=== PATIENT | male | born 1960 | race Caucasian/White ===

== ENCOUNTER 2018-08-18 00:11 | Inpatient (IN) | payer OTHER, MEDICARE ==
[2018-08-18] VITALS (11 sets, daily range): BP systolic 112–158; BP diastolic 54–99
[~2018-08-18] VITALS: Ht 185.4 cm; Wt 99.8 kg
[~2018-08-18 00:11] MED LIST: ARFO15VI2 IH; DIAZ10TA PO; FLUT10SP NS; GABA-290 PO; HYDR-519 PO; MAGN400T26 PO; MELA5TAB3 PO; OXYB5TAB11 PO; TAMS0.4C31 PO; TERA2CAP4 PO; TIZA4TAB4 PO; TRAZ-212 PO; WARF-67 PO; WARF3TAB58 PO
[2018-08-18] MEDS ORDERED: IPRATROPIUM BROMIDE (0.02%) 0.5MG/2.5ML NEB HHN STA ×2 (00:28)
[2018-08-18] MEDS ORDERED: METHYLPREDNISOLONE SOD SUCC 125 MG/2 ML VIAL IV STA (00:28)
[2018-08-18] MEDS ORDERED: ALBUTEROL (0.083%) 2.5MG/3ML NEB HHN STA ×2 (00:28)
[2018-08-18] MEDS ORDERED: LEVOFLOXACIN 750MG PREMIX 150 ML IV ONE (00:30)
[2018-08-18] MEDS ORDERED: VANCOMYCIN 1 G PREMIX 200 ML IV ONE (00:30)
[2018-08-18] MEDS ORDERED: SODIUM CHLORIDE 0.9% 1000ML BAG (SEPSIS BOLUS) IV ONE (00:30)
[2018-08-18 01:31] LABS: BASOPHILS % 0.5 % (0.0-2.0); EOSINOPHILS % 1.7 % (0.0-5.0); HEMATOCRIT. 44.4 % (42.0-52.0); HEMOGLOBIN. 15.1 g/dL (14.0-18.0); LYMPHOCYTES % 33.3 % (20.0-50.0); MEAN CORPUSCULAR HEMOGLOBIN 30.4 pg (28.0-32.0); MEAN CORPUSCULAR VOLUME 89.7 fL (80.0-94.0); MEAN PLATELET VOLUME 8.4 fl (7.4-10.4); MONOCYTES % 5.8 % (2.0-8.0); NEUTROPHILS % 58.7 % (40.0-76.0); PLATELET 158 x1000/uL (130-400); RED BLOOD CELL COUNT 4.95 mill/uL (4.7-6.1); RED CELL DISTRIBUTION WIDTH 15.4 % (11.6-14.6)
[2018-08-18] MEDS ORDERED: ASPIRIN 81MG TABLET PO ONE (01:45)
[2018-08-18 01:52] LABS: CHLORIDE 100 mEq/L (98-107)
[2018-08-18 01:53] LABS: PARTIAL THROMBOPLASTIN TIME 33.4 sec (23.4-31.0); PROTHROMBIN TIME 9.8 sec (9.1-11.1)
[2018-08-18] MEDS ORDERED: POTASSIUM CHLORIDE 20MEQ TABLET SR PO ONE (02:15)
[2018-08-18 03:17] LABS: CLARITY URINE TURBID (CLEAR); COLOR URINE YELLOW (YELLOW); KETONES URINE TRACE (NEGATIVE); LEUKOCYTE ESTERASE URINE 3+ (NEGATIVE); NITRITE URINE POSITIVE (NEGATIVE); OCCULT BLOOD URINE 1+ (NEGATIVE); PH URINE 6.5 (4.5-8.0); PROTEIN URINE NEGATIVE (NEGATIVE); SPECIFIC GRAVITY URINE 1.008 (1.005-1.030); UROBILINOGEN URINE 0.2 E.U./dL (0.2-1.0)
[2018-08-18] MEDS ORDERED: IPRATROPIUM/ALBUTEROL 0.5-3(2.5)MG/3ML NEB HHN PRN (05:45)
[2018-08-18] MEDS ORDERED: ZOLPIDEM TARTRATE 5MG TABLET PO PRN (05:45)
[2018-08-18] MEDS: HYDROCODONE/ACETAMINOPHEN 10/325MG TABLET PO PRN ×2 (06:08→16:30)
[2018-08-18] MEDS: IPRATROPIUM/ALBUTEROL 0.5-3(2.5)MG/3ML NEB HHN SCH ×3 (07:58→20:21)
[2018-08-18] MEDS ORDERED: APIX5TAB MT (07:58)
[2018-08-18] MEDS ORDERED: GUAIFENESIN 200MG/10ML SUGAR FREE UDC PO PRN (09:30)
[2018-08-18] MEDS ORDERED: ACETAMINOPHEN 650MG/20.3ML UDC GT PRN (09:30)
[2018-08-18] MEDS ORDERED: CLONIDINE 0.1MG TABLET PO PRN (09:30)
[2018-08-18] MEDS ORDERED: ACETAMINOPHEN 650MG SUPP PR PRN (09:30)
[2018-08-18] MEDS ORDERED: DOCUSATE SODIUM 100MG CAPSULE PO PRN (09:30)
[2018-08-18] MEDS ORDERED: DIPHENHYDRAMINE 50MG/ML VIAL IV PRN (09:30)
[2018-08-18] MEDS ORDERED: IPRATROPIUM/ALBUTEROL 0.5-3(2.5)MG/3ML NEB INH PRN (09:30)
[2018-08-18] MEDS ORDERED: MAGNESIUM/ALUMINUM HYDROXIDE/SIMETHICONE 30ML UDC PO PRN (09:30)
[2018-08-18] MEDS ORDERED: NA PHOS,M-B/NA PHOS,DI-BA ENEMA 118ML PR PRN (09:30)
[2018-08-18] MEDS: GUAIFENESIN 600MG ER TABLET PO SCH ×2 (09:57→20:32)
[2018-08-18] MEDS ORDERED: INFLUENZA VIRUS VACCINE(AFLURIA) 0.5ML SYR IM ONE (10:00)
[2018-08-18] MEDS ORDERED: IPRATROPIUM/ALBUTEROL 0.5-3(2.5)MG/3ML NEB INH SCH (12:00)
[2018-08-18 12:19] LABS: BASOPHILS % 0.1 % (0.0-2.0); HEMATOCRIT. 41.6 % (42.0-52.0); HEMOGLOBIN. 14.1 g/dL (14.0-18.0); MEAN CORPUSCULAR HEMOGLOBIN 30.4 pg (28.0-32.0); MEAN CORPUSCULAR VOLUME 89.9 fL (80.0-94.0); MEAN PLATELET VOLUME 8.2 fl (7.4-10.4); MONOCYTES % 1.5 % (2.0-8.0); NEUTROPHILS % 86.4 % (40.0-76.0); PLATELET 143 x1000/uL (130-400); RED BLOOD CELL COUNT 4.63 mill/uL (4.7-6.1)
[2018-08-18 12:40] LABS: CHLORIDE 108 mEq/L (98-107)
[2018-08-18] MEDS: SODIUM CHLORIDE 0.9% INJ 3ML FLUSH IVF SCH ×2 (14:00→22:00)
[2018-08-18 17:50] LABS: HEPATITIS B SURFACE ANTIGEN NEGATIVE
[2018-08-18 18:20] LABS: HEPATITIS A AB IGM NEGATIVE (NEGATIVE)
[2018-08-18] MEDS: AZITHROMYCIN 500 MG in DEXT 5% WATER 250 ML IV SCH (19:58)
[2018-08-18] MEDS ORDERED: LEVOFLOXACIN 500MG PREMIX 100 ML IV SCH (23:00)
[2018-08-19] VITALS (11 sets, daily range): BP systolic 137–181; BP diastolic 68–111
[2018-08-19] MEDS: IPRATROPIUM/ALBUTEROL 0.5-3(2.5)MG/3ML NEB HHN SCH ×3 (01:05→14:29)
[2018-08-19] MEDS: SODIUM CHLORIDE 0.9% INJ 3ML FLUSH IVF SCH ×2 (06:00→13:09)
[2018-08-19 07:03] LABS: BASOPHILS % 0.5 % (0.0-2.0); EOSINOPHILS % 0.9 % (0.0-5.0); HEMATOCRIT. 40.8 % (42.0-52.0); HEMOGLOBIN. 13.7 g/dL (14.0-18.0); LYMPHOCYTES % 36.8 % (20.0-50.0); MEAN CORPUSCULAR HEMOGLOBIN 29.9 pg (28.0-32.0); MEAN CORPUSCULAR VOLUME 89.3 fL (80.0-94.0); MEAN PLATELET VOLUME 8.2 fl (7.4-10.4); MONOCYTES % 9.1 % (2.0-8.0); NEUTROPHILS % 52.7 % (40.0-76.0); PLATELET 152 x1000/uL (130-400); RED BLOOD CELL COUNT 4.57 mill/uL (4.7-6.1); RED CELL DISTRIBUTION WIDTH 15.2 % (11.6-14.6)
[2018-08-19 09:22] LABS: CHLORIDE 109 mEq/L (98-107)
[2018-08-19 09:39] LABS: HDL CHOLESTEROL 65 mg/dL (40-59)
[2018-08-19 09:40] LABS: LDL CHOLESTEROL 65 mg/dL (5-100)
[2018-08-19] MEDS: GUAIFENESIN 600MG ER TABLET PO SCH (09:58)
[2018-08-19] MEDS ORDERED: LEVO500T2 MT (11:00)
[2018-08-19] MEDS: HYDROCODONE/ACETAMINOPHEN 10/325MG TABLET PO PRN (13:51)
[2018-08-19] MEDS: AZITHROMYCIN 500 MG in DEXT 5% WATER 250 ML IV SCH (16:48)
[2018-08-20 13:06] LABS: HIV SCREEN 4G Non Reactive (Non Reactive)
[2018-08-20] MEDS ORDERED: AZITHROMYCIN 500 MG TABLET PO SCH (21:00)
[2018-08-20] MEDS ORDERED: LEVOFLOXACIN 250MG TABLET PO SCH (21:00)
== END 2018-08-19 18:05 | disposition home or self-care (01) | DRG 871 ==
LOC: ER 00:11 → 5EST 02:16
PROVIDERS: ADMIT Family Medicine; ATTEND Family Medicine
DX: A41.9 Sepsis, unspecified organism (principal); G82.50 Quadriplegia, unspecified; J96.00 Acute respiratory failure, unspecified whether with hypoxia or hypercapnia; J18.1 Lobar pneumonia, unspecified organism; E44.1 Mild protein-calorie malnutrition; N39.0 Urinary tract infection, site not specified; I50.42 Chronic combined systolic (congestive) and diastolic (congestive) heart failure; E87.6 Hypokalemia; I49.5 Sick sinus syndrome; I95.9 Hypotension, unspecified; R94.5 Abnormal results of liver function studies; Z88.8 Allergy status to other drugs, medicaments and biological substances; Z83.3 Family history of diabetes mellitus; Z86.718 Personal history of other venous thrombosis and embolism; Z87.01 Personal history of pneumonia (recurrent); Z93.0 Tracheostomy status; Z95.0 Presence of cardiac pacemaker; Z74.01 Bed confinement status; Z68.29 Body mass index [BMI] 29.0-29.9, adult; Z87.81 Personal history of (healed) traumatic fracture; Z79.899 Other long term (current) drug therapy; Z79.01 Long term (current) use of anticoagulants
CPT/HCPCS: 36415; 71045; 80061; 83605; 83880; 84145; 84484; 86705; 86709; 86803; 87077; 87186; 87340; 87389; 87804; 90686; 93005; 94640; 96365; 96366; 99291; C1893; J0456; J1956; J2930; J3370; J7030; J7050; J7060; J7611; J7620; A4315

== ENCOUNTER 2019-04-02 02:51 | Emergency (ER) | payer OTHER, MEDICARE ==
[~2019-04-02] VITALS: Ht 188 cm; Wt 98.0 kg
[~2019-04-02 02:51] MED LIST changes: +APIX5TAB MT; +LEVO500T2 MT; -TERA2CAP4 PO; -TRAZ-212 PO; +TRAZ-251 PO; -WARF-67 PO; -WARF3TAB58 PO
[2019-04-02 05:32] LABS: BASOPHILS % 0.4 % (0.0-2.0); EOSINOPHILS % 0.1 % (0.0-5.0); HEMATOCRIT. 44.2 % (42.0-52.0); HEMOGLOBIN. 14.9 g/dL (14.0-18.0); LYMPHOCYTES % 11.8 % (20.0-50.0); MEAN CORPUSCULAR HEMOGLOBIN 31.1 pg (28.0-32.0); MEAN CORPUSCULAR VOLUME 92.2 fL (80.0-94.0); MEAN PLATELET VOLUME 8.6 fl (7.4-10.4); MONOCYTES % 3.3 % (2.0-8.0); NEUTROPHILS % 84.4 % (40.0-76.0); PLATELET 170 x1000/uL (130-400); RED BLOOD CELL COUNT 4.79 mill/uL (4.7-6.1); RED CELL DISTRIBUTION WIDTH 14.7 % (11.6-14.6)
[2019-04-02 05:39] LABS: CHLORIDE 102 mEq/L (98-107)
[2019-04-02 05:44] LABS: PROTHROMBIN TIME 10.5 sec (9.6-11.0)
[2019-04-02] MEDS ORDERED: MORPHINE SULFATE 4 MG/ML CPJ (NOT FOR IM USE) IV STA (06:39)
[2019-04-02] MEDS ORDERED: ONDANSETRON HCL 4MG/2ML INJ IV STA (06:39)
[2019-04-02] MEDS ORDERED: SODIUM CHLORIDE 0.9% 1,000 ML IV ONE (06:39)
[2019-04-02] MEDS ORDERED: LEVOFLOXACIN 750MG PREMIX 150 ML IV ONE (08:00)
[2019-04-02 08:48] LABS: CLARITY URINE CLOUDY (CLEAR); COLOR URINE YELLOW (YELLOW); KETONES URINE 4+ (NEGATIVE); LEUKOCYTE ESTERASE URINE 3+ (NEGATIVE); NITRITE URINE POSITIVE (NEGATIVE); OCCULT BLOOD URINE TRACE (NEGATIVE); PH URINE 5.5 (4.5-8.0); PROTEIN URINE NEGATIVE (NEGATIVE); SPECIFIC GRAVITY URINE 1.019 (1.005-1.030); UROBILINOGEN URINE 0.2 E.U./dL (0.2-1.0)
[2019-04-02 09:24] LABS: *AMPHETAMINES SCREEN URINE NEGATIVE (NEGATIVE); *BARBITURATES SCREEN URINE NEGATIVE (NEGATIVE)
[2019-04-02 09:25] LABS: *BENZODIAZEPINES SCREEN URINE PRESUMTIVE POSITIVE (NEGATIVE); *COCAINE SCREEN URINE NEGATIVE (NEGATIVE); CANNABINOID URINE SCREEN PRESUMTIVE POSITIVE (NEGATIVE); METHADONE URINE SCREEN NEGATIVE (NEGATIVE); OPIATES URINE SCREEN PRESUMTIVE POSITIVE (NEGATIVE)
[2019-04-02 09:26] LABS: PHENCYCLIDINE URINE SCREEN NEGATIVE (NEGATIVE)
[2019-04-02 10:00] VITALS: BP 95/62
[2019-04-02] MEDS ORDERED: LEVOFLOXACIN 250MG TABLET PO ONE (10:45)
== END 2019-04-02 12:49 | disposition home or self-care (01) ==
LOC: ER 02:51
DX: N30.90 Cystitis, unspecified without hematuria (principal); R11.2 Nausea with vomiting, unspecified; R05 Cough; Z87.828 Personal history of other (healed) physical injury and trauma; Z95.0 Presence of cardiac pacemaker; I50.9 Heart failure, unspecified; Z88.0 Allergy status to penicillin
CPT/HCPCS: 36415; 51702; 71045; 74176; 80053; 80305; 81003; 83690; 83880; 84484; 85025; 85610; 87077; 87086; 87186; 93005; 99284; J7030

== ENCOUNTER 2020-02-19 17:47 | Emergency (ER) | payer OTHER, MEDICARE ==
[~2020-02-19] VITALS: Ht 188 cm; Wt 102.0 kg
[~2020-02-19 17:47] MED LIST changes: -OXYB5TAB11 PO; +OXYB5TAB16 PO; -TIZA4TAB4 PO; +TIZA4TAB5 PO
[2020-02-19] MEDS ORDERED: MORPHINE SULFATE 10 MG/ML CPJ IM ONE (19:00)
[2020-02-19 20:42] LABS: CHLORIDE 107 mEq/L (98-107)
[2020-02-19 20:45] LABS: BASOPHILS % 0.9 % (0.0-2.0); EOSINOPHILS % 1.1 % (0.0-5.0); HEMATOCRIT. 40.2 % (42.0-52.0); LYMPHOCYTES % 21.5 % (20.0-50.0); MEAN CORPUSCULAR HEMOGLOBIN 32.1 pg (28.0-32.0); MEAN CORPUSCULAR VOLUME 92.3 fL (80.0-94.0); MEAN PLATELET VOLUME 7.9 fl (7.4-10.4); NEUTROPHILS % 70.5 % (40.0-76.0); PLATELET 165 x1000/uL (130-400); RED BLOOD CELL COUNT 4.36 mill/uL (4.7-6.1); RED CELL DISTRIBUTION WIDTH 15.5 % (11.6-14.6)
[2020-02-19] MEDS ORDERED: AMLODIPINE 5MG TABLET PO ONE (21:15)
[2020-02-19 22:18] VITALS: BP 149/98
[2020-02-19] MEDS ORDERED: ONDANSETRON 4MG ODT PO ONE (22:45)
== END 2020-02-19 23:54 | disposition home or self-care (01) ==
LOC: ER 17:47
DX: S40.011A Contusion of right shoulder, initial encounter (principal); S70.01XA Contusion of right hip, initial encounter; W05.0XXA Fall from non-moving wheelchair, initial encounter; Y93.89 Activity, other specified; Y92.89 Other specified places as the place of occurrence of the external cause; G82.20 Paraplegia, unspecified; Z99.3 Dependence on wheelchair
CPT/HCPCS: 36415; 73030; 73502; 80053; 85025; 96372; 99285; J2270; Q0162

== ENCOUNTER 2020-12-17 14:19 | Inpatient (IN) | payer MEDICARE, OTHER ==
[~2020-12-17] VITALS: Ht 188 cm; Wt 106.6 kg
[2020-12-17] MEDS ORDERED: SODIUM CHLORIDE 0.9% 1000ML BAG (SEPSIS BOLUS) IV ONE (15:00)
[2020-12-17] MEDS ORDERED: VANCOMYCIN 1 G PREMIX 200 ML IV ONE (15:00)
[2020-12-17] MEDS ORDERED: MEROPENEM 1,000 MG in SODIUM CHLORIDE 0.9% 100 ML IV ONE (15:00)
[2020-12-17 15:27] LABS: BASOPHILS % 1.4 % (0.0-2.0); EOSINOPHILS % 3.1 % (0.0-5.0); HEMOGLOBIN. 12.7 g/dL (14.0-18.0); LYMPHOCYTES % 29.3 % (20.0-50.0); MEAN CORPUSCULAR HEMOGLOBIN 28.9 pg (28.0-32.0); MEAN PLATELET VOLUME 7.8 fl (7.4-10.4); MONOCYTES % 10.2 % (2.0-8.0); PLATELET 236 x1000/uL (130-400); RED BLOOD CELL COUNT 4.38 mill/uL (4.7-6.1); RED CELL DISTRIBUTION WIDTH 17.5 % (11.6-14.6)
[2020-12-17 15:32] LABS: CHLORIDE 104 mEq/L (98-107)
[2020-12-17 15:37] LABS: PROTHROMBIN TIME 10.9 sec (9.6-11.0)
[2020-12-17] MEDS ORDERED: TRAMADOL 50MG TABLET PO PRN (18:15)
[2020-12-17] MEDS ORDERED: GUAIFENESIN 200MG/10ML SUGAR FREE UDC PO PRN (18:15)
[2020-12-17] MEDS ORDERED: IPRATROPIUM/ALBUTEROL 0.5-3(2.5)MG/3ML NEB NEB PRN (18:15)
[2020-12-17] MEDS ORDERED: MORPHINE SULFATE 2 MG/ML CPJ (NOT FOR IM USE) IV PRN (18:15)
[2020-12-17] MEDS ORDERED: DOCUSATE SODIUM 100MG CAPSULE PO PRN (18:15)
[2020-12-17] MEDS ORDERED: MAGNESIUM/ALUMINUM HYDROXIDE/SIMETHICONE 30ML UDC PO PRN (18:15)
[2020-12-17] MEDS ORDERED: ONDANSETRON HCL 4MG/2ML INJ IV PRN (18:15)
[2020-12-17] MEDS ORDERED: NITROGLYCERIN 0.4MG TABLET SL SL PRN (18:15)
[2020-12-17] MEDS ORDERED: ACETAMINOPHEN 325MG TABLET PO PRN ×2 (18:15)
[2020-12-17 19:45] LABS: T4 FREE 1.11 ng/dL (0.76-1.46)
[2020-12-17 20:08] LABS: CLARITY URINE CLEAR (CLEAR); COLOR URINE YELLOW (YELLOW); KETONES URINE NEGATIVE (NEGATIVE); LEUKOCYTE ESTERASE URINE TRACE (NEGATIVE); NITRITE URINE NEGATIVE (NEGATIVE); OCCULT BLOOD URINE NEGATIVE (NEGATIVE); PH URINE 6.5 (4.5-8.0); PROTEIN URINE NEGATIVE (NEGATIVE); SPECIFIC GRAVITY URINE 1.012 (1.005-1.030); UROBILINOGEN URINE 0.2 E.U./dL (0.2-1.0)
[2020-12-17] MEDS: APIXABAN 5 MG TABLET PO SCH (20:27)
[2020-12-17 22:53] VITALS: BP 140/92
[2020-12-17 23:00] VITALS: BP 123/73
[2020-12-18] VITALS (12 sets, daily range): BP systolic 98–149; BP diastolic 56–97
[2020-12-18] MEDS ORDERED: VANCOMYCIN 1 G PREMIX 200 ML IV SCH
[2020-12-18 00:03] LABS: CREATINE KINASE 40 IU/L (39-308)
[2020-12-18 00:04] LABS: CREATINE KINASE MB FRACTION 1.9 ng/mL (0.5-3.6)
[2020-12-18] MEDS ORDERED: MEROPENEM 1,000 MG in SODIUM CHLORIDE 0.9% 100 ML IV SCH (02:00)
[2020-12-18 06:42] LABS: CHLORIDE 106 mEq/L (98-107)
[2020-12-18 06:48] LABS: BASOPHILS % 1.1 % (0.0-2.0); EOSINOPHILS % 4.2 % (0.0-5.0); HEMATOCRIT. 39.2 % (42.0-52.0); HEMOGLOBIN. 12.8 g/dL (14.0-18.0); LYMPHOCYTES % 35.8 % (20.0-50.0); MEAN CORPUSCULAR HEMOGLOBIN 28.7 pg (28.0-32.0); MEAN CORPUSCULAR VOLUME 88.2 fL (80.0-94.0); MEAN PLATELET VOLUME 7.5 fl (7.4-10.4); MONOCYTES % 8.7 % (2.0-8.0); NEUTROPHILS % 50.2 % (40.0-76.0); PLATELET 230 x1000/uL (130-400); RED BLOOD CELL COUNT 4.45 mill/uL (4.7-6.1); RED CELL DISTRIBUTION WIDTH 17.9 % (11.6-14.6)
[2020-12-18 06:57] LABS: PHOSPHORUS 3.5 mg/dL (2.5-4.9)
[2020-12-18 06:58] LABS: CREATINE KINASE 36 IU/L (39-308)
[2020-12-18 07:02] LABS: CREATINE KINASE MB FRACTION 2.2 ng/mL (0.5-3.6)
[2020-12-18] MEDS: APIXABAN 5 MG TABLET PO SCH ×2 (08:47→17:33)
[2020-12-18] MEDS: CHOLECALCIFEROL (D3) 1000 UNIT TABLET PO SCH (08:49)
[2020-12-18] MEDS: ASCORBIC ACID 500 MG TABLET PO SCH ×3 (08:49→21:08)
[2020-12-18] MEDS: FAMOTIDINE 20MG TABLET PO SCH ×3 (08:49→21:08)
[2020-12-18] MEDS: ZINC SULFATE 220 MG ( 50 ) CAPSULE PO SCH (08:49)
[2020-12-18] MEDS: VANCOMYCIN 1 G PREMIX 200 ML IV SCH ×2 (10:12→21:07)
[2020-12-18] MEDS: MEROPENEM 1000MG in NORMAL SALINE 100ML IV SCH ×2 (12:36→21:07)
[2020-12-18] MEDS: BACLOFEN 10MG TABLET PO SCH ×2 (12:36→21:08)
[2020-12-18] MEDS: KETOROLAC 15MG/ML VIAL IV PRN ×3 (12:38→18:43)
[2020-12-18] MEDS: ZOLPIDEM TARTRATE 5MG TABLET PO PRN (21:08)
[2020-12-19] VITALS (14 sets, daily range): BP systolic 95–166; BP diastolic 51–100
[2020-12-19] MEDS: VANCOMYCIN 1 G PREMIX 200 ML IV SCH (02:17)
[2020-12-19] MEDS: MEROPENEM 1000MG in NORMAL SALINE 100ML IV SCH ×3 (02:17→19:55)
[2020-12-19] MEDS: BACLOFEN 10MG TABLET PO SCH ×3 (05:16→22:05)
[2020-12-19 06:25] LABS: CHLORIDE 109 mEq/L (98-107)
[2020-12-19] MEDS: FAMOTIDINE 20MG TABLET PO SCH ×2 (08:19→20:04)
[2020-12-19] MEDS: ZINC SULFATE 220 MG ( 50 ) CAPSULE PO SCH (08:19)
[2020-12-19] MEDS: APIXABAN 5 MG TABLET PO SCH ×2 (08:19→17:22)
[2020-12-19] MEDS: CHOLECALCIFEROL (D3) 1000 UNIT TABLET PO SCH (08:19)
[2020-12-19] MEDS: ASCORBIC ACID 500 MG TABLET PO SCH ×2 (08:19→20:04)
[2020-12-20] VITALS (11 sets, daily range): BP systolic 116–162; BP diastolic 36–97
[2020-12-20] MEDS: MEROPENEM 1000MG in NORMAL SALINE 100ML IV SCH ×2 (03:16→11:23)
[2020-12-20 06:17] LABS: CHLORIDE 107 mEq/L (98-107)
[2020-12-20] MEDS: BACLOFEN 10MG TABLET PO SCH ×3 (06:39→21:23)
[2020-12-20] MEDS: CHOLECALCIFEROL (D3) 1000 UNIT TABLET PO SCH (08:42)
[2020-12-20] MEDS: APIXABAN 5 MG TABLET PO SCH ×2 (08:42→17:56)
[2020-12-20] MEDS: FAMOTIDINE 20MG TABLET PO SCH ×2 (08:42→21:23)
[2020-12-20] MEDS: ASCORBIC ACID 500 MG TABLET PO SCH ×2 (08:42→21:23)
[2020-12-20] MEDS: ZINC SULFATE 220 MG ( 50 ) CAPSULE PO SCH (08:42)
[2020-12-20] MEDS ORDERED: CEFTRIAXONE 1 G PREMIX 50 ML IV SCH (14:15)
[2020-12-20] MEDS: METRONIDAZOLE 500MG TABLET PO SCH (15:16)
[2020-12-20] MEDS: CEFTRIAXONE 1,000 MG in DEXTROSE 5% WATER 50 ML IV SCH (17:56)
[2020-12-20] MEDS: VANCOMYCIN 1 G PREMIX 200 ML IV SCH (18:03)
[2020-12-20] MEDS: ZOLPIDEM TARTRATE 5MG TABLET PO PRN (21:23)
[2020-12-20] MEDS: CLONIDINE 0.1MG TABLET PO PRN (21:24)
[2020-12-21] VITALS: BP 106/67
[2020-12-21] MEDS: METRONIDAZOLE 500MG TABLET PO SCH ×3 (00:12→21:19)
[2020-12-21 04:00] VITALS: BP 127/74
[2020-12-21] MEDS: BACLOFEN 10MG TABLET PO SCH ×3 (05:42→21:19)
[2020-12-21 08:00] VITALS: BP 162/82
[2020-12-21] MEDS: CHOLECALCIFEROL (D3) 1000 UNIT TABLET PO SCH (09:07)
[2020-12-21] MEDS: FAMOTIDINE 20MG TABLET PO SCH ×2 (09:07→21:19)
[2020-12-21] MEDS: APIXABAN 5 MG TABLET PO SCH ×2 (09:08→17:26)
[2020-12-21] MEDS: CLONIDINE 0.1MG TABLET PO PRN (09:08)
[2020-12-21] MEDS: ASCORBIC ACID 500 MG TABLET PO SCH ×2 (09:08→21:19)
[2020-12-21] MEDS: ZINC SULFATE 220 MG ( 50 ) CAPSULE PO SCH (09:08)
[2020-12-21] MEDS: VANCOMYCIN 1 G PREMIX 200 ML IV SCH (11:35)
[2020-12-21 12:00] VITALS: BP 103/73
[2020-12-21] MEDS: CEFTRIAXONE 1,000 MG in DEXTROSE 5% WATER 50 ML IV SCH (15:14)
[2020-12-21 16:00] VITALS: BP 119/72
[2020-12-21 20:00] VITALS: BP 112/86
[2020-12-22] VITALS: BP 151/95
[2020-12-22 04:00] VITALS: BP 111/63
[2020-12-22] MEDS: VANCOMYCIN 1 G PREMIX 200 ML IV SCH ×2 (05:36→22:06)
[2020-12-22] MEDS: BACLOFEN 10MG TABLET PO SCH ×3 (05:36→22:05)
[2020-12-22 06:04] LABS: CHLORIDE 105 mEq/L (98-107)
[2020-12-22 06:08] LABS: C REACTIVE PROTEIN QUANT 5.1 mg/L (0.0-3.0)
[2020-12-22 06:19] LABS: BASOPHILS % 0.7 % (0.0-2.0); EOSINOPHILS % 2.1 % (0.0-5.0); HEMATOCRIT. 40.5 % (42.0-52.0); HEMOGLOBIN. 13.5 g/dL (14.0-18.0); LYMPHOCYTES % 33.2 % (20.0-50.0); MEAN CORPUSCULAR HEMOGLOBIN 29.3 pg (28.0-32.0); MEAN CORPUSCULAR VOLUME 87.7 fL (80.0-94.0); MEAN PLATELET VOLUME 8.2 fl (7.4-10.4); MONOCYTES % 7.6 % (2.0-8.0); NEUTROPHILS % 56.4 % (40.0-76.0); PLATELET 232 x1000/uL (130-400); RED BLOOD CELL COUNT 4.61 mill/uL (4.7-6.1); RED CELL DISTRIBUTION WIDTH 17.3 % (11.6-14.6)
[2020-12-22 08:00] VITALS: BP 126/72
[2020-12-22] MEDS: NYSTATIN POWDER 15GM TOP SCH ×2 (09:00→22:06)
[2020-12-22] MEDS: CHOLECALCIFEROL (D3) 1000 UNIT TABLET PO SCH (09:57)
[2020-12-22] MEDS: METRONIDAZOLE 500MG TABLET PO SCH ×2 (09:58→22:08)
[2020-12-22] MEDS: FAMOTIDINE 20MG TABLET PO SCH ×2 (09:58→22:05)
[2020-12-22] MEDS: ASCORBIC ACID 500 MG TABLET PO SCH ×2 (09:58→22:06)
[2020-12-22] MEDS: ZINC SULFATE 220 MG ( 50 ) CAPSULE PO SCH (09:58)
[2020-12-22] MEDS: APIXABAN 5 MG TABLET PO SCH ×2 (09:58→17:26)
[2020-12-22 12:00] VITALS: BP 148/90
[2020-12-22] MEDS: CEFTRIAXONE 1,000 MG in DEXTROSE 5% WATER 50 ML IV SCH (14:29)
[2020-12-22 16:00] VITALS: BP 160/94
[2020-12-22] MEDS: CLONIDINE 0.1MG TABLET PO PRN (17:26)
[2020-12-22 20:00] VITALS: BP 99/67
[2020-12-23] VITALS: BP 112/70
[2020-12-23 04:00] VITALS: BP 120/83
[2020-12-23] MEDS: BACLOFEN 10MG TABLET PO SCH ×3 (05:44→20:57)
[2020-12-23 08:00] VITALS: BP 129/85
[2020-12-23] MEDS: ASCORBIC ACID 500 MG TABLET PO SCH ×2 (08:57→20:57)
[2020-12-23] MEDS: FAMOTIDINE 20MG TABLET PO SCH ×2 (08:57→20:57)
[2020-12-23] MEDS: ZINC SULFATE 220 MG ( 50 ) CAPSULE PO SCH (08:57)
[2020-12-23] MEDS: METRONIDAZOLE 500MG TABLET PO SCH ×2 (08:57→20:57)
[2020-12-23] MEDS: CHOLECALCIFEROL (D3) 1000 UNIT TABLET PO SCH (08:57)
[2020-12-23] MEDS: APIXABAN 5 MG TABLET PO SCH ×2 (08:57→17:44)
[2020-12-23] MEDS: NYSTATIN POWDER 15GM TOP SCH ×2 (08:58→21:04)
[2020-12-23 12:00] VITALS: BP 95/68
[2020-12-23] MEDS: CEFTRIAXONE 1,000 MG in DEXTROSE 5% WATER 50 ML IV SCH (14:39)
[2020-12-23 16:00] VITALS: BP 119/59
[2020-12-23] MEDS: VANCOMYCIN 1 G PREMIX 200 ML IV SCH (17:44)
[2020-12-23 20:00] VITALS: BP 94/54
[2020-12-24] VITALS: BP 157/87
[2020-12-24 04:00] VITALS: BP 108/66
[2020-12-24] MEDS: BACLOFEN 10MG TABLET PO SCH ×3 (06:37→21:33)
[2020-12-24 08:00] VITALS: BP 128/46
[2020-12-24] MEDS: CHOLECALCIFEROL (D3) 1000 UNIT TABLET PO SCH (08:47)
[2020-12-24] MEDS: FAMOTIDINE 20MG TABLET PO SCH ×2 (08:47→20:34)
[2020-12-24] MEDS: METRONIDAZOLE 500MG TABLET PO SCH ×2 (08:47→21:33)
[2020-12-24] MEDS: ASCORBIC ACID 500 MG TABLET PO SCH ×2 (08:48→20:34)
[2020-12-24] MEDS: APIXABAN 5 MG TABLET PO SCH ×2 (08:48→17:17)
[2020-12-24] MEDS: ZINC SULFATE 220 MG ( 50 ) CAPSULE PO SCH (08:48)
[2020-12-24 12:00] VITALS: BP 116/69
[2020-12-24] MEDS: VANCOMYCIN 1 G PREMIX 200 ML IV SCH (12:07)
[2020-12-24] MEDS: NYSTATIN POWDER 15GM TOP SCH ×2 (14:18→20:35)
[2020-12-24] MEDS: CEFTRIAXONE 1,000 MG in DEXTROSE 5% WATER 50 ML IV SCH (14:53)
[2020-12-24 16:00] VITALS: BP 114/80
[2020-12-24 20:00] VITALS: BP 166/90
[2020-12-24] MEDS: CLONIDINE 0.1MG TABLET PO PRN (20:34)
[2020-12-25] VITALS (7 sets, daily range): BP systolic 91–140; BP diastolic 57–90
[2020-12-25] MEDS: VANCOMYCIN 1 G PREMIX 200 ML IV SCH (05:38)
[2020-12-25] MEDS: BACLOFEN 10MG TABLET PO SCH ×2 (05:38→14:06)
[2020-12-25] MEDS: ASCORBIC ACID 500 MG TABLET PO SCH (09:47)
[2020-12-25] MEDS: ZINC SULFATE 220 MG ( 50 ) CAPSULE PO SCH (09:47)
[2020-12-25] MEDS: FAMOTIDINE 20MG TABLET PO SCH (09:47)
[2020-12-25] MEDS: METRONIDAZOLE 500MG TABLET PO SCH (09:47)
[2020-12-25] MEDS: APIXABAN 5 MG TABLET PO SCH ×2 (09:47→17:34)
[2020-12-25] MEDS: CHOLECALCIFEROL (D3) 1000 UNIT TABLET PO SCH (09:47)
[2020-12-25] MEDS: NYSTATIN POWDER 15GM TOP SCH (09:47)
[2020-12-25 12:16] LABS: CHLORIDE 103 mEq/L (98-107)
[2020-12-25] MEDS: CEFTRIAXONE 1,000 MG in DEXTROSE 5% WATER 50 ML IV SCH (15:00)
[2020-12-25] MEDS ORDERED: DOCU-138 PO (15:57)
[2020-12-25] MEDS ORDERED: VANCOMYCIN 1250MG in DEXTROSE 5% WATER 250ML IV SCH (20:00)
== END 2020-12-25 19:18 | DRG 871 ==
LOC: ER 15:11 → EDBEDREQTM 18:00 → EDBEDREQ 18:00 → EDBEDREQSVC 18:00 → SUPCPDRO 18:02 → 3WST 18:05 → EDBEDREQTM 18:09 → EDBEDREQSVC 18:09 → ENRESERV 20:16 → 3WST 21:48 → 5WST 12-20 15:40
PROVIDERS: ADMIT Internal Medicine; ATTEND Internal Medicine
DX: A41.9 Sepsis, unspecified organism (principal); G82.52 Quadriplegia, C1-C4 incomplete; S72.401A Unspecified fracture of lower end of right femur, initial encounter for closed fracture; E87.1 Hypo-osmolality and hyponatremia; L03.115 Cellulitis of right lower limb; M86.8X6 Other osteomyelitis, lower leg; D63.8 Anemia in other chronic diseases classified elsewhere; I11.0 Hypertensive heart disease with heart failure; I50.9 Heart failure, unspecified; K59.00 Constipation, unspecified; I73.9 Peripheral vascular disease, unspecified; X58.XXXA Exposure to other specified factors, initial encounter; Z74.01 Bed confinement status; Z79.01 Long term (current) use of anticoagulants; Z99.3 Dependence on wheelchair; Z79.899 Other long term (current) drug therapy; Z79.1 Long term (current) use of non-steroidal anti-inflammatories (NSAID); Z88.8 Allergy status to other drugs, medicaments and biological substances; Z79.2 Long term (current) use of antibiotics; Z88.0 Allergy status to penicillin; Y93.89 Activity, other specified; Y92.89 Other specified places as the place of occurrence of the external cause; Y99.8 Other external cause status; L89.510 Pressure ulcer of right ankle, unstageable
CPT/HCPCS: 36415; 73562; 80048; 80053; 80061; 80202; 81003; 82040; 82550; 82553; 82607; 82746; 83036; 83540; 83550; 83605; 83735; 84100; 84134; 84145; 84439; 84443; 84484; 85025; 85651; 86140; 87070; 93005; 93923; 93970; 99291; A6261; C1893; J0696; J1885; J2185; J2270; J2405; J3370; J7030; J7040; J7050; J7060

== ENCOUNTER 2022-01-09 13:09 | Inpatient (IN) | payer MEDICARE ==
[~2022-01-09] VITALS: Ht 188 cm; Wt 81.6 kg
[~2022-01-09 13:09] MED LIST changes: -ARFO15VI2 IH; +DOCU-138 PO; -LEVO500T2 MT; -MAGN400T26 PO; -TAMS0.4C31 PO; -TRAZ-251 PO
[2022-01-09] MEDS ORDERED: TRANEXAMIC ACID 1,000 MG in SODIUM CHLORIDE 0.9% 100 ML IV NR (13:45)
[2022-01-09] MEDS ORDERED: HUMAN PROTHROMBIN COMPLX (PCC) 500 UNITS VIAL IV NR (14:00)
[2022-01-09 14:06] LABS: EOSINOPHILS % 2.4 % (0.0-5.0); HEMATOCRIT. 35.7 % (42.0-52.0); LYMPHOCYTES % 42.9 % (20.0-50.0); MEAN CORPUSCULAR VOLUME 80.5 fL (80.0-94.0); MEAN PLATELET VOLUME 7.2 fl (7.4-10.4); MONOCYTES % 7.9 % (2.0-8.0); NEUTROPHILS % 45.8 % (40.0-76.0); PLATELET 216 x1000/uL (130-400); RED BLOOD CELL COUNT 4.44 mill/uL (4.7-6.1); RED CELL DISTRIBUTION WIDTH 18.4 % (11.6-14.6)
[2022-01-09 14:14] LABS: CHLORIDE 107 mEq/L (98-107)
[2022-01-09] MEDS: PHYTONADIONE 10 MG in DEXTROSE 5% WATER 50 ML IV NR ×2 (14:23→15:09)
[2022-01-09 16:47] LABS: PROTHROMBIN TIME 10.8 sec (9.6-11.0)
[2022-01-09 18:30] VITALS: BP 147/91
[2022-01-09] MEDS ORDERED: ACETAMINOPHEN 325MG TABLET PO PRN (18:30)
[2022-01-09 19:00] VITALS: BP 126/89
[2022-01-09 20:07] VITALS: BP 148/91
[2022-01-09] MEDS: AMLODIPINE 10MG TABLET PO SCH (21:00)
[2022-01-10] VITALS (7 sets, daily range): BP systolic 66–204; BP diastolic 42–114
[2022-01-10 06:25] LABS: HEMATOCRIT. 41.5 % (42.0-52.0); HEMOGLOBIN. 14.4 g/dL (14.0-18.0); MEAN CORPUSCULAR HEMOGLOBIN 27.8 pg (28.0-32.0); MEAN CORPUSCULAR VOLUME 80.1 fL (80.0-94.0); MEAN PLATELET VOLUME 7.6 fl (7.4-10.4); PLATELET 189 x1000/uL (130-400); RED BLOOD CELL COUNT 5.18 mill/uL (4.7-6.1); RED CELL DISTRIBUTION WIDTH 17.8 % (11.6-14.6)
[2022-01-10 08:14] LABS: CHLORIDE 107 mEq/L (98-107)
[2022-01-10] MEDS: AMLODIPINE 10MG TABLET PO SCH (09:06)
[2022-01-10 15:07] LABS: CLARITY URINE TURBID (CLEAR); COLOR URINE RED (YELLOW); KETONES URINE NEGATIVE (NEGATIVE); LEUKOCYTE ESTERASE URINE 3+ (NEGATIVE); NITRITE URINE POSITIVE (NEGATIVE); OCCULT BLOOD URINE 1+ (NEGATIVE); PH URINE 6.5 (4.5-8.0); PROTEIN URINE 1+ (NEGATIVE); SPECIFIC GRAVITY URINE 1.013 (1.005-1.030); UROBILINOGEN URINE 0.2 E.U./dL (0.2-1.0)
[2022-01-10] MEDS: ONDANSETRON HCL 4MG/2ML INJ IV PRN (15:41)
[2022-01-10] MEDS: APIXABAN 5 MG TABLET PO SCH (17:00)
[2022-01-10 19:24] LABS: PLATELET ESTIMATE NORMAL
[2022-01-10] MEDS: HYDRALAZINE HCL 100MG TABLET PO SCH (21:14)
[2022-01-11] VITALS: BP 82/40
[2022-01-11 04:00] VITALS: BP 108/60
[2022-01-11 08:00] VITALS: BP 116/51
[2022-01-11] MEDS: APIXABAN 5 MG TABLET PO SCH ×2 (08:58→18:12)
[2022-01-11] MEDS: HYDRALAZINE HCL 100MG TABLET PO SCH ×2 (08:58→21:00)
[2022-01-11] MEDS: AMLODIPINE 10MG TABLET PO SCH (08:58)
[2022-01-11] MEDS ORDERED: CIPR500T5 MT (11:59)
[2022-01-11 12:00] VITALS: BP 92/54
[2022-01-11] MEDS: LEVOFLOXACIN 500MG PREMIX 100 ML IV SCH (14:48)
[2022-01-11 16:00] VITALS: BP 102/65
[2022-01-11 20:00] VITALS: BP 100/49
[2022-01-12] VITALS: BP 113/73
[2022-01-12 04:00] VITALS: BP 125/68
[2022-01-12 08:00] VITALS: BP 113/70
[2022-01-12] MEDS: HYDRALAZINE HCL 100MG TABLET PO SCH ×2 (09:00→20:41)
[2022-01-12] MEDS: AMLODIPINE 10MG TABLET PO SCH (09:20)
[2022-01-12] MEDS: APIXABAN 5 MG TABLET PO SCH ×2 (09:20→18:04)
[2022-01-12] MEDS: ONDANSETRON HCL 4MG/2ML INJ IV PRN (11:49)
[2022-01-12 12:00] VITALS: BP 109/69
[2022-01-12] MEDS: LEVOFLOXACIN 500MG PREMIX 100 ML IV SCH (15:07)
[2022-01-12 16:00] VITALS: BP 96/59
[2022-01-12 18:49] VITALS: BP 96/59
== END 2022-01-12 23:45 | disposition home health service (06) | DRG 919 ==
LOC: ER 13:15 → CVICU 14:23 → EDBEDREQTM 14:24 → EDBEDREQSVC 14:24 → EDBEDREQ 14:24 → ENRESERV 17:26 → 7WST 20:40
PROVIDERS: ADMIT Internal Medicine; ATTEND Internal Medicine
PROC: 30233M1 Transfusion of Nonautologous Plasma Cryoprecipitate into Peripheral Vein, Percutaneous Approach (ICD-10-PCS; principal; 2022-01-09)
PROC: 30233N1 Transfusion of Nonautologous Red Blood Cells into Peripheral Vein, Percutaneous Approach (ICD-10-PCS; 2022-01-09)
DX: T81.31XA Disruption of external operation (surgical) wound, not elsewhere classified, initial encounter (principal); G82.50 Quadriplegia, unspecified; T79.4XXA Traumatic shock, initial encounter; E44.0 Moderate protein-calorie malnutrition; N39.0 Urinary tract infection, site not specified; D64.9 Anemia, unspecified; I11.0 Hypertensive heart disease with heart failure; R31.9 Hematuria, unspecified; Y83.8 Other surgical procedures as the cause of abnormal reaction of the patient, or of later complication, without mention of misadventure at the time of the procedure; X58.XXXA Exposure to other specified factors, initial encounter; I50.9 Heart failure, unspecified; Z79.01 Long term (current) use of anticoagulants; Z86.718 Personal history of other venous thrombosis and embolism; Z88.8 Allergy status to other drugs, medicaments and biological substances; Z68.23 Body mass index [BMI] 23.0-23.9, adult; Y92.89 Other specified places as the place of occurrence of the external cause; Y93.89 Activity, other specified; Y99.8 Other external cause status
CPT/HCPCS: 36415; 80048; 80053; 81003; 82040; 84134; 85025; 86850; 86900; 86920; 86927; 87077; 87186; 99291; C9132; J1956; J2405; J3430; J7050; J7060; P9012; P9016; A4315

== ENCOUNTER 2022-11-14 12:50 | Inpatient (IN) | payer MEDICARE ==
[~2022-11-14] VITALS: Ht 188 cm; Wt 90.5 kg
[~2022-11-14 12:50] MED LIST changes: +CIPR500T5 MT; +TIZA-204 PO; -TIZA4TAB5 PO
[2022-11-14] MEDS ORDERED: ALBUTEROL (0.083%) 2.5MG/3ML NEB HHN STA (15:01)
[2022-11-14] MEDS ORDERED: IPRATROPIUM BROMIDE (0.02%) 0.5MG/2.5ML NEB HHN STA (15:01)
[2022-11-14 15:42] LABS: EOSINOPHILS % 4.1 % (0.0-5.0); HEMOGLOBIN. 11.9 g/dL (14.0-18.0); LYMPHOCYTES % 27.5 % (20.0-50.0); MEAN CORPUSCULAR HEMOGLOBIN 26.5 pg (28.0-32.0); MEAN CORPUSCULAR VOLUME 82.3 fL (80.0-94.0); MEAN PLATELET VOLUME 7.4 fl (7.4-10.4); MONOCYTES % 12.1 % (2.0-8.0); NEUTROPHILS % 55.3 % (40.0-76.0); PLATELET 230 x1000/uL (130-400); RED CELL DISTRIBUTION WIDTH 16.9 % (11.6-14.6)
[2022-11-14 15:43] LABS: INR 1.1; PROTHROMBIN TIME 11.9 sec (9.6-11.0)
[2022-11-14 15:44] LABS: CHLORIDE 103 mEq/L (98-107)
[2022-11-14] MEDS ORDERED: MIDODRINE HCL 5MG TABLET PO ONE (18:45)
[2022-11-14] MEDS ORDERED: DOPAMINE 400MG/250ML PREMIX 250 ML IV ONE (18:45)
[2022-11-14] MEDS ORDERED: NOREPINEPHRINE 8 MG in DEXT 5% WATER 242 ML IV PRN (21:00)
[2022-11-14] MEDS ORDERED: IPRATROPIUM/ALBUTEROL 0.5-3(2.5)MG/3ML NEB HHN PRN (21:00)
[2022-11-14] MEDS: NOREPINEPHRINE 8 MG in DEXT 5% WATER 242 ML IV PRN (21:35)
[2022-11-15] VITALS (49 sets, daily range): BP systolic 68–141; BP diastolic 38–85
[2022-11-15] MEDS ORDERED: TERA2CAP4 PO (07:57)
[2022-11-15] MEDS ORDERED: ZOLP10TA2 PO (07:57)
[2022-11-15] MEDS ORDERED: ONDA8TAB13 PO (07:57)
[2022-11-15] MEDS ORDERED: ALBU90AE INH (07:57)
[2022-11-15] MEDS: IPRATROPIUM/ALBUTEROL 0.5-3(2.5)MG/3ML NEB HHN SCH ×3 (08:48→21:08)
[2022-11-15 08:49] LABS: CLARITY URINE TURBID (CLEAR); COLOR URINE YELLOW (YELLOW); KETONES URINE NEGATIVE (NEGATIVE); LEUKOCYTE ESTERASE URINE 3+ (NEGATIVE); NITRITE URINE NEGATIVE (NEGATIVE); OCCULT BLOOD URINE 2+ (NEGATIVE); PH URINE 6.5 (4.5-8.0); PROTEIN URINE 1+ (NEGATIVE); SPECIFIC GRAVITY URINE 1.012 (1.005-1.030)
[2022-11-15 08:55] LABS: BG BASE EXCESS -5.8 mmol/L (-2.0-2.0); BG CARBOXYHEMOGLOBIN 0.3 % (0.5-1.5); BG DEOXYHEMOGLOBIN 3.5 % (0.0-5.0); BG FRACTION INSPIRED OXYGEN 21; BG METHEMOGLOBIN 0.3 % (0.0-1.5); BG OXYGEN SATURATION 96.5 % (92.0-98.5); BG OXYHEMOGLOBIN 95.9 % (94.0-97.0); BG PCO2 35.1 mmHg (35.0-45.0); BG PH 7.351 (7.350-7.450); BG PO2 84.8 mmHg (75.0-100.0); BG SAMPLE SITE LEFT BRACHIAL; BG TOTAL HEMOGLOBIN 12.7 g/dL (12.0-18.0); BG VENT MODE ROOM AIR
[2022-11-15] MEDS ORDERED: ONDANSETRON HCL 4MG/2ML INJ IV PRN (09:30)
[2022-11-15] MEDS ORDERED: ACETAMINOPHEN 325MG TABLET PO PRN (09:30)
[2022-11-15] MEDS ORDERED: ENOXAPARIN 100MG/ML SYR SUBCUT SCH (11:00)
[2022-11-15] MEDS: PANTOPRAZOLE SODIUM 40 MG/VIAL IV SCH (11:13)
[2022-11-15] MEDS: CEFEPIME 1,000 MG in DEXTROSE 5% WATER 50 ML IV SCH ×2 (11:13→23:25)
[2022-11-15] MEDS: MIDODRINE HCL 5MG TABLET PO SCH ×3 (11:13→17:47)
[2022-11-15] MEDS: APIXABAN 5 MG TABLET PO SCH ×2 (11:16→17:46)
[2022-11-15] MEDS ORDERED: MEDICATION NOT ON FORMULARY EA (Gabapentin 1 TAB) PO SCH (13:00)
[2022-11-15] MEDS: OXYBUTYNIN CHLORIDE 5MG TABLET PO SCH ×2 (13:36→17:05)
[2022-11-15] MEDS: GABAPENTIN 300MG CAPSULE PO SCH ×2 (13:36→17:05)
[2022-11-15 16:11] LABS: *AMPHETAMINES SCREEN URINE NEGATIVE (NEGATIVE); *BARBITURATES SCREEN URINE NEGATIVE (NEGATIVE); *BENZODIAZEPINES SCREEN URINE NEGATIVE (NEGATIVE); *COCAINE SCREEN URINE NEGATIVE (NEGATIVE); CANNABINOID URINE SCREEN PRESUMTIVE POSITIVE (NEGATIVE); METHADONE URINE SCREEN NEGATIVE (NEGATIVE); OPIATES URINE SCREEN NEGATIVE (NEGATIVE); PHENCYCLIDINE URINE SCREEN NEGATIVE (NEGATIVE)
[2022-11-15] MEDS: DOCUSATE SODIUM 100MG CAPSULE PO SCH (17:05)
[2022-11-15] MEDS: NOREPINEPHRINE 8 MG in DEXT 5% WATER 242 ML IV PRN (19:38)
[2022-11-16] VITALS (55 sets, daily range): BP systolic 56–187; BP diastolic 28–94
[2022-11-16] MEDS: IPRATROPIUM/ALBUTEROL 0.5-3(2.5)MG/3ML NEB HHN SCH ×4 (02:10→20:46)
[2022-11-16] MEDS: APIXABAN 5 MG TABLET PO SCH ×2 (09:19→19:06)
[2022-11-16] MEDS: MIDODRINE HCL 5MG TABLET PO SCH ×3 (09:20→19:06)
[2022-11-16] MEDS: GABAPENTIN 300MG CAPSULE PO SCH ×3 (09:20→19:05)
[2022-11-16] MEDS: OXYBUTYNIN CHLORIDE 5MG TABLET PO SCH ×3 (09:20→19:06)
[2022-11-16] MEDS: PANTOPRAZOLE SODIUM 40 MG/VIAL IV SCH (09:20)
[2022-11-16] MEDS ORDERED: LIDOCAINE HCL 1% 30ML VIAL (10MG/ML) ONE (09:24)
[2022-11-16] MEDS: CEFEPIME 1,000 MG in DEXTROSE 5% WATER 50 ML IV SCH ×2 (11:00→20:54)
[2022-11-16 15:50] LABS: BASOPHILS % 0.5 % (0.0-2.0); EOSINOPHILS % 1.2 % (0.0-5.0); HEMATOCRIT. 34.5 % (42.0-52.0); HEMOGLOBIN. 11.4 g/dL (14.0-18.0); LYMPHOCYTES % 32.8 % (20.0-50.0); MEAN CORPUSCULAR HEMOGLOBIN 26.4 pg (28.0-32.0); MEAN CORPUSCULAR VOLUME 79.9 fL (80.0-94.0); MEAN PLATELET VOLUME 7.6 fl (7.4-10.4); MONOCYTES % 13.2 % (2.0-8.0); NEUTROPHILS % 52.3 % (40.0-76.0); PLATELET 240 x1000/uL (130-400); RED BLOOD CELL COUNT 4.32 mill/uL (4.7-6.1); RED CELL DISTRIBUTION WIDTH 17.4 % (11.6-14.6)
[2022-11-16 16:00] LABS: CHLORIDE 103 mEq/L (98-107)
[2022-11-16] MEDS: DOCUSATE SODIUM 100MG CAPSULE PO SCH (19:06)
[2022-11-16] MEDS ORDERED: IOHEXOL-300 100 ML BOTTLE ONE (19:23)
[2022-11-17] VITALS (25 sets, daily range): BP systolic 93–182; BP diastolic 53–99
[2022-11-17] MEDS: IPRATROPIUM/ALBUTEROL 0.5-3(2.5)MG/3ML NEB HHN SCH ×4 (01:49→20:11)
[2022-11-17] MEDS: GABAPENTIN 300MG CAPSULE PO SCH ×3 (09:13→17:32)
[2022-11-17] MEDS: PANTOPRAZOLE SODIUM 40 MG/VIAL IV SCH (09:14)
[2022-11-17] MEDS: APIXABAN 5 MG TABLET PO SCH ×2 (09:14→17:31)
[2022-11-17] MEDS: OXYBUTYNIN CHLORIDE 5MG TABLET PO SCH ×3 (09:14→17:31)
[2022-11-17] MEDS: MIDODRINE HCL 5MG TABLET PO SCH (09:14)
[2022-11-17] MEDS: CEFEPIME 1,000 MG in DEXTROSE 5% WATER 50 ML IV SCH (09:15)
[2022-11-17] MEDS ORDERED: SULF1TAB48 MT (12:20)
[2022-11-17] MEDS ORDERED: MEROPENEM 1,000 MG in SODIUM CHLORIDE 0.9% 100 ML IV SCH (13:00)
[2022-11-17] MEDS: MEROPENEM-0.9% SODIUM CHLORIDE 50 ML IV SCH ×2 (14:16→20:59)
[2022-11-17] MEDS: DOCUSATE SODIUM 100MG CAPSULE PO SCH (17:32)
[2022-11-17] MEDS ORDERED: MUPIROCIN 2% OINT 22GM TOP SCH (21:00)
[2022-11-18] VITALS: BP 177/82
[2022-11-18 00:06] VITALS: BP 156/91
== END 2022-11-18 03:00 | disposition home or self-care (01) | DRG 871 ==
LOC: ER 13:25 → EDBEDREQ 15:02 → MICUSO 19:03 → EDBEDREQTM 21:29 → EDBEDREQ 21:29 → EDBEDREQSVC 21:29 → EDBEDREQTM 23:22 → CVICU 11-15 06:00
PROVIDERS: ADMIT Internal Medicine; ATTEND Internal Medicine
PROC: 02HV33Z Insertion of Infusion Device into Superior Vena Cava, Percutaneous Approach (ICD-10-PCS; principal; 2022-11-16)
PROC: B548ZZA Ultrasonography of Superior Vena Cava, Guidance (ICD-10-PCS; 2022-11-16)
DX: A41.9 Sepsis, unspecified organism (principal); G82.50 Quadriplegia, unspecified; J18.9 Pneumonia, unspecified organism; R65.21 Severe sepsis with septic shock; J96.01 Acute respiratory failure with hypoxia; E44.0 Moderate protein-calorie malnutrition; N39.0 Urinary tract infection, site not specified; J44.1 Chronic obstructive pulmonary disease with (acute) exacerbation; J98.19 Other pulmonary collapse; D64.9 Anemia, unspecified; L89.159 Pressure ulcer of sacral region, unspecified stage; Z68.25 Body mass index [BMI] 25.0-25.9, adult; S70.921A Unspecified superficial injury of right thigh, initial encounter; I11.0 Hypertensive heart disease with heart failure; I50.9 Heart failure, unspecified; Z86.74 Personal history of sudden cardiac arrest; Z95.0 Presence of cardiac pacemaker; Z87.440 Personal history of urinary (tract) infections
CPT/HCPCS: 36415; 36573; 36600; 71045; 73700; 80048; 80053; 80305; 81003; 82040; 82375; 82805; 83605; 83880; 84134; 84145; 84484; 85025; 85379; 87070; 87106; 87186; 87804; 93005; 93970; 94640; 94644; 99291; C1725; C9113; J0692; J1265; J2185; J3490; J7050; J7060; Q9967